=== PATIENT | female | born 1990 | race Caucasian/White ===

== ENCOUNTER 2017-06-09 03:35 | Emergency (ER) | payer MEDICAID, OTHER ==
[~2017-06-09] VITALS: Ht 160 cm; Wt 62.1 kg
[2017-06-09 03:39] VITALS: BP 148/101
--- NOTE | 2017-06-09 03:57 | NUR ---
RELAYED TO MD RESULT OF URINE DIPSTICK AND URINE
--- NOTE | 2017-06-09 03:58 | NUR ---
PATIENT PRESENTS TO ED WITH PAINFUL URINATION AND VAGINAL PAIN . PT STATES IT START 5 DAYS AGO,I THINK I HAVE SOME DRAINAGE BUT ITS HARD TO TELL BEC MY PERIODS CAME IN, DENIES N/V/D; SKIN IS PINK/WARM/DRY; AAOX4 WITH EVEN AND STEADY GAIT; LUNGS CLEAR BL; HR EVEN AND REGULAR; PT DENIES ANY FEVER, CP, SOB, OR COUGH AT THIS TIME; PATIENT STATES PAIN OF 10/10 AT THIS TIME; PATIENT POSITIONED FOR COMFORT; HOB ELEVATED; BEDRAILS UP X2; BED DOWN. ER MD MADE AWARE OF PT STATUS.
[2017-06-09] MEDS ORDERED: LEVOFLOXACIN 500 MG TAB PO ONE (04:15)
[2017-06-09] MEDS ORDERED: PHENAZOPYRIDINE 100 MG TAB PO ONE (04:15)
--- NOTE | 2017-06-09 04:16 | NUR ---
DR. PRATHER AT BEDSIDE
--- NOTE | 2017-06-09 04:23 | NUR ---
DR. PRATHER AT BEDSIDE AGAIN
[2017-06-09] MEDS ORDERED: cefTRIAXone 250 MG in LIDOCAINE 1% ED 0.9 ML IM ONE (04:30)
[2017-06-09 04:46] VITALS: BP 142/96
--- NOTE | 2017-06-09 04:47 | NUR ---
Patient discharged with v/s stable. Written and verbal after care instructions given and explained. Patient alert, oriented and verbalized understanding of instructions. Ambulatory with steady gait. All questions addressed prior to discharge. ID band removed. Patient advised to follow up with PMD. Rx of DOXYCYCLINE,PYRIDIUM AND MACROBID given. Patient educated on indication of medication including possible reaction and side effects. Opportunity to ask questions provided and answered.ENCOURAGED FLUID INTAKE AND HAND HYGIENE AND PT AGREED WITH IT
[2017-06-11 20:57] LABS: CHLAMYDIA TRACHOMATIS AMP DNA Negative (Negative)
== END 2017-06-09 04:49 | disposition home or self-care (01) ==
LOC: MED 03:35
DX: N39.0 Urinary tract infection, site not specified (principal); R03.0 Elevated blood-pressure reading, without diagnosis of hypertension; Z88.1 Allergy status to other antibiotic agents
CPT/HCPCS: 36415; 81002; 81025; 87491; 96372; 99283; J0696; J2001

== ENCOUNTER 2019-12-25 07:32 | Emergency (ER) | payer OTHER ==
[~2019-12-25] VITALS: Ht 165.1 cm; Wt 64.0 kg
--- NOTE | 2019-12-25 07:37 | NUR ---
PT AMBULATED TO BED, STEADY GAIT
[2019-12-25 07:44] VITALS: BP 148/103
--- NOTE | 2019-12-25 07:54 | NUR ---
DR. SCHULTZ ASSESSING PT
--- NOTE | 2019-12-25 08:05 | NUR ---
29 Y/F PRESENTS TO ED WITH PRODUCTIVE COUGH X 4 DAY, PT ALSO REPORTS GRAFF, B EAR PAIN/PLUGGED, SORE THROAT, AND FATIGUE. PATIENT DENIES N/V/D, OR FEVERS. LUNGS CLEAR THROUGHOUT, NO REPIRATORY DISTRESS NOTED.S1S2 PRESENT. PT REPORTS BURNING DURING URINATION X 6 MONTHS ON AN DOFF. NO ACCESSORY MUSCLE USE. PMH- DENIES MEDS- IBPROFEN AND COUGH SYRUP
--- NOTE | 2019-12-25 08:09 | NUR ---
Patient discharged with v/s stable. Written and verbal after care instructions given and explained. Patient alert, oriented and verbalized understanding of instructions. Ambulatory with steady gait. All questions addressed prior to discharge. ID band removed. Patient advised to follow up with PMD. Rx of AMOXICILIN given. Patient educated on indication of medication including possible reaction and side effects. Opportunity to ask questions provided and answered.
[2019-12-25 08:10] VITALS: BP 148/103
== END 2019-12-25 08:09 | disposition home or self-care (01) ==
LOC: MED 07:32
DX: H66.93 Otitis media, unspecified, bilateral (principal); Z88.1 Allergy status to other antibiotic agents
CPT/HCPCS: 81002; 81025; 99283

== ENCOUNTER 2021-11-20 14:12 | Emergency (ER) | payer OTHER ==
[~2021-11-20] VITALS: Ht 160 cm; Wt 63.0 kg
[2021-11-20 14:36] VITALS: BP 144/113
[2021-11-20 15:34] LABS: APPEARANCE,URINE CLEAR (CLEAR); BILIRUBIN,URINE NEGATIVE (NEGATIVE); BLOOD, URINE 3+ (NEGATIVE); COLOR,URINE YELLOW (YELLOW); LEUKOCYTE ESTERASE ,URINE NEGATIVE (NEGATIVE); NITRITE, URINE NEGATIVE (NEGATIVE); UGLUCOSE NEGATIVE (NEGATIVE)
--- NOTE | 2021-11-20 17:30 | NUR ---
PATIENT LEFT WITHOUT BEING SEEN BY DR. SANCHEZ. NO FURTHER CARE PROVIDED FOR PATIENT.
[2021-11-20 17:58] LABS: RBC,URINE TOO NUMEROUS TO COUN /HPF (0-5); WBC,URINE NONE SEEN /HPF (0-5)
== END 2021-11-20 17:30 | disposition left against medical advice (07) ==
LOC: MED 14:12
DX: R51.9 Headache, unspecified (principal); R42 Dizziness and giddiness; Z53.21 Procedure and treatment not carried out due to patient leaving prior to being seen by health care provider
CPT/HCPCS: 81001; 81025; 99281; 99283

== ENCOUNTER 2023-07-12 20:35 | Emergency (ER) | payer OTHER ==
[~2023-07-12] VITALS: Ht 160 cm; Wt 61.2 kg
[2023-07-12 22:02] VITALS: BP 147/97; PULSE 92; RESP 18; TEMP 97.9; O2SAT 92
[2023-07-12 22:32] LABS: APPEARANCE,URINE CLEAR (CLEAR); BILIRUBIN,URINE NEGATIVE (NEGATIVE); BLOOD, URINE NEGATIVE (NEGATIVE); COLOR,URINE YELLOW (YELLOW); LEUKOCYTE ESTERASE ,URINE TRACE (NEGATIVE); NITRITE, URINE POSITIVE (NEGATIVE); PROTEIN,URINE NEGATIVE (NEGATIVE); UGLUCOSE NEGATIVE (NEGATIVE); UROBILINOGEN,URINE 0.2 EU/dL (0.2 - 1)
[2023-07-12 22:47] LABS: BACTERIA,URINE >30 (MANY) /HPF (None Seen); MUCUS,URINE 1+ /LPF (None Seen); RBC,URINE 0-5 /HPF (0-5)
[2023-07-13] MEDS ORDERED: PHENAZOPYRIDINE 100 MG TAB PO ONE (01:20)
[2023-07-13] MEDS ORDERED: cefTRIAXone 1,000 MG in LIDOCAINE MPF 1% 2.1 ML IM ONE (01:20)
[2023-07-13] MEDS ORDERED: cefTRIAXone 1,000 MG VIAL ONE (01:24)
[2023-07-13] MEDS ORDERED: LIDOCAINE MPF 1% 5 ML ONE (01:25)
[2023-07-13] MEDS ORDERED: DOXY-690 PO (02:08)
[2023-07-13] MEDS ORDERED: METR-435 PO (02:08)
[2023-07-13] MEDS ORDERED: PYR100 PO (02:08)
[2023-07-13 02:40] VITALS: BP 146/95; PULSE 79; RESP 18; TEMP 97.9; O2SAT 100
== END 2023-07-13 02:40 | disposition home or self-care (01) ==
LOC: MED 20:35
DX: A59.03 Trichomonal cystitis and urethritis (principal); N39.0 Urinary tract infection, site not specified; Z79.899 Other long term (current) drug therapy
CPT/HCPCS: 81001; 81025; 87086; 87210; 87491; 96372; 99284; J0696; J2001